=== PATIENT | male | born 1950 ===

== ENCOUNTER 2018-04-14 15:39 | Inpatient (IN) | payer BC, MEDICARE ==
[2018-04-14] VITALS (9 sets, daily range): BP systolic 96–135; BP diastolic 62–89
[~2018-04-14] VITALS: Ht 177.8 cm; Wt 83.3 kg
[2018-04-14] MEDS ORDERED: TRAM50TA2 PO (15:55)
[2018-04-14] MEDS ORDERED: MELA5TAB PO (15:55)
[2018-04-14] MEDS ORDERED: ONDA4TAB11 PO (15:55)
[2018-04-14] MEDS ORDERED: LIPA1CAP15 PO (15:55)
[2018-04-14] MEDS ORDERED: GABA-534 PO (15:55)
[2018-04-14] MEDS ORDERED: IV NORMAL SALINE 1000 ML BAG IV ONE (16:00)
[2018-04-14 16:12] LABS: BASOPHILS % (AUTO) 0.2 % (0.0-2.0)
[2018-04-14 16:14] LABS: EOSINOPHILS # (AUTO) 0.1 K/uL (0.0-0.7); EOSINOPHILS % (AUTO) 0.9 % (0.0-7.0); LYMPHOCYTES # (AUTO) 1.1 K/uL (20.0-40.0); LYMPHOCYTES % (AUTO) 7.2 % (20.5-51.5); MEAN CORPUSCULAR HEMOGLOBIN 31.6 uug (23.8-33.4); MEAN CORPUSCULAR HGB CONC 33 g/dL (32.5-36.3); MEAN CORPUSCULAR VOLUME 95.3 fL (73.0-96.2); MONOCYTES % (AUTO) 6.5 % (0.0-11.0); NEUTROPHILS # (AUTO) 13.2 K/uL (1.8-8.9); NEUTROPHILS % (AUTO) 85.2 % (38.5-71.5); PLATELET COUNT (AUTO) 95 K/uL (152-348); WHITE BLOOD COUNT (AUTO) 15.5 K/uL (3.6-10.2)
[2018-04-14 16:22] LABS: RED BLOOD CELL COUNT(AUTO) 1.86 MIL/uL (4.06-5.63)
[2018-04-14 16:23] LABS: CREATININE 0.8 mg/dL (0.6-1.3); HEMOGLOBIN 5.9 g/dL (12.5-16.3); POTASSIUM 3.3 mmol/L (3.5-5.1)
[2018-04-14 16:24] LABS: HEMATOCRIT 17.7 % (36.7-47.1)
[2018-04-14 16:28] LABS: BILIRUBIN,DIRECT 0.1 mg/dL (0.0-0.2); BILIRUBIN,TOTAL 0.2 mg/dL (0.2-1.0); TOTAL PROTEIN, SERUM 5.2 g/dL (6.4-8.2)
[2018-04-14] MEDS ORDERED: OCTREOTIDE ACETATE DRIP 1,250 MCG in IV NORMAL SALINE 250 ML IV ONE (17:00)
[2018-04-14] MEDS ORDERED: OCTREOTIDE ACETATE INJ 500 MCG in IV DEXTROSE 5% 100 ML IV ONE (17:00)
[2018-04-14 18:13] LABS: BAND % (MANUAL) 15 % (0-10); NEUTROPHILS % (MANUAL) 73 % (42-75)
[2018-04-14 18:14] LABS: LYMPHOCYTES % (MANUAL) 6 % (20-40); MONOCYTES % (MANUAL) 6 % (2-10)
[2018-04-14] MEDS ORDERED: PANTOPRAZOLE SODIUM IV 80 MG in IV DEXTROSE 5% 500 ML IV SCH (19:30)
[2018-04-14] MEDS: PANTOPRAZOLE SODIUM 40 MG VIAL IV SCH (21:05)
[2018-04-14] MEDS: HYDROMORPHONE 2 MG/1 ML DISP.SYRIN IV PRN (22:23)
[2018-04-15] VITALS (15 sets, daily range): BP systolic 102–133; BP diastolic 68–79
[2018-04-15 00:50] LABS: HEMATOCRIT 22.3 % (36.7-47.1); HEMOGLOBIN 7.7 g/dL (12.5-16.3)
[2018-04-15] MEDS: HYDROMORPHONE 2 MG/1 ML DISP.SYRIN IV PRN ×3 (05:00→22:27)
[2018-04-15] MEDS: PANTOPRAZOLE SODIUM 40 MG VIAL IV SCH ×2 (09:09→20:28)
[2018-04-15 09:25] LABS: BASOPHILS % (AUTO) 0.2 % (0.0-2.0); EOSINOPHILS # (AUTO) 0.1 K/uL (0.0-0.7); HEMATOCRIT 24.6 % (36.7-47.1); HEMOGLOBIN 8.4 g/dL (12.5-16.3); LYMPHOCYTES # (AUTO) 0.9 K/uL (20.0-40.0); LYMPHOCYTES % (AUTO) 7.9 % (20.5-51.5); MEAN CORPUSCULAR HEMOGLOBIN 31.7 uug (23.8-33.4); MEAN CORPUSCULAR HGB CONC 34 g/dL (32.5-36.3); MEAN CORPUSCULAR VOLUME 92.5 fL (73.0-96.2); MONOCYTES # (AUTO) 0.7 K/uL (2.0-10.0); MONOCYTES % (AUTO) 6.4 % (0.0-11.0); NEUTROPHILS # (AUTO) 9.5 K/uL (1.8-8.9); NEUTROPHILS % (AUTO) 84.5 % (38.5-71.5); PLATELET COUNT (AUTO) 91 K/uL (152-348); RED BLOOD CELL COUNT(AUTO) 2.66 MIL/uL (4.06-5.63); WHITE BLOOD COUNT (AUTO) 11.2 K/uL (3.6-10.2)
[2018-04-15 09:54] LABS: BAND % (MANUAL) 2 % (0-10); EOSINOPHILS % (MANUAL) 1 % (0-8); LYMPHOCYTES % (MANUAL) 6 % (20-40); MONOCYTES % (MANUAL) 9 % (2-10); NEUTROPHILS % (MANUAL) 82 % (42-75)
[2018-04-15 12:19] LABS: CREATININE 0.8 mg/dL (0.6-1.3); POTASSIUM 3.6 mmol/L (3.5-5.1)
[2018-04-15] MEDS: OCTREOTIDE ACETATE DRIP 1,250 MCG in IV NORMAL SALINE 247.5 ML IV PRN (16:38)
[2018-04-15 18:09] LABS: HEMATOCRIT 25.2 % (36.7-47.1); HEMOGLOBIN 8.5 g/dL (12.5-16.3)
[2018-04-16 05:20] VITALS: BP 110/69
[2018-04-16 06:00] LABS: HEMOGLOBIN 8.6 g/dL (12.5-16.3)
[2018-04-16] MEDS ORDERED: Z GUARD REMEDY PASTE 57 GM TUBE TOP PRN (07:45)
[2018-04-16] MEDS ORDERED: ACETAMINOPHEN 325 MG TABLET PO PRN (07:45)
[2018-04-16] MEDS ORDERED: HYDROCODONE/APAP 5-325MG TABLET PO PRN (07:45)
[2018-04-16] MEDS ORDERED: ONDANSETRON 4 MG/2 ML VIAL IV PRN (07:45)
[2018-04-16 08:39] LABS: BASOPHILS # (AUTO) 0.3 K/uL (0.0-8.0); BASOPHILS % (AUTO) 3.6 % (0.0-2.0); EOSINOPHILS # (AUTO) 0.1 K/uL (0.0-0.7); EOSINOPHILS % (AUTO) 1.5 % (0.0-7.0); HEMATOCRIT 25.5 % (36.7-47.1); HEMOGLOBIN 8.7 g/dL (12.5-16.3); LYMPHOCYTES # (AUTO) 0.8 K/uL (20.0-40.0); LYMPHOCYTES % (AUTO) 9.4 % (20.5-51.5); MEAN CORPUSCULAR HGB CONC 34 g/dL (32.5-36.3); MEAN CORPUSCULAR VOLUME 93.3 fL (73.0-96.2); MONOCYTES # (AUTO) 0.7 K/uL (2.0-10.0); NEUTROPHILS # (AUTO) 6.5 K/uL (1.8-8.9); NEUTROPHILS % (AUTO) 77.5 % (38.5-71.5); PLATELET COUNT (AUTO) 90 K/uL (152-348); RED BLOOD CELL COUNT(AUTO) 2.73 MIL/uL (4.06-5.63); WHITE BLOOD COUNT (AUTO) 8.3 K/uL (3.6-10.2)
[2018-04-16 08:49] LABS: BILIRUBIN,TOTAL 0.3 mg/dL (0.2-1.0); MAGNESIUM 1.7 mg/dL (1.8-2.4); PHOSPHOROUS 3.6 mg/dL (2.5-4.9); POTASSIUM 3.6 mmol/L (3.5-5.1)
[2018-04-16] MEDS: PANTOPRAZOLE SODIUM 40 MG VIAL IV SCH ×2 (08:55→20:08)
[2018-04-16] MEDS ORDERED: PANTOPRAZOLE SODIUM 40 MG VIAL IV SCH (09:00)
[2018-04-16 11:22] VITALS: BP 105/66
[2018-04-16] MEDS: OCTREOTIDE ACETATE DRIP 1,250 MCG in IV NORMAL SALINE 247.5 ML IV PRN (13:32)
[2018-04-16 15:00] VITALS: BP 106/68
[2018-04-16 15:37] LABS: IRON, SERUM 36 ug/dL (50-175)
[2018-04-16 15:50] LABS: FERRITIN 231 ng/mL (26-388)
[2018-04-16] MEDS ORDERED: SOD FERRIC GLUC COMPLX/SUCROSE 125 MG in IV NORMAL SALINE 100 ML IV SCH (17:30)
[2018-04-16 20:00] VITALS: BP 110/70
[2018-04-16] MEDS: HYDROMORPHONE 2 MG/1 ML DISP.SYRIN IV PRN (22:49)
[2018-04-17 05:47] VITALS: BP 117/75
[2018-04-17] MEDS ORDERED: MAGNESIUM OXIDE 400 MG TABLET PO ONE (08:45)
[2018-04-17] MEDS: PANTOPRAZOLE SODIUM 40 MG VIAL IV SCH (09:21)
[2018-04-17 09:39] LABS: BASOPHILS % (AUTO) 0.3 % (0.0-2.0); EOSINOPHILS # (AUTO) 0.2 K/uL (0.0-0.7); EOSINOPHILS % (AUTO) 1.9 % (0.0-7.0); HEMATOCRIT 27.3 % (36.7-47.1); HEMOGLOBIN 9.3 g/dL (12.5-16.3); LYMPHOCYTES # (AUTO) 0.9 K/uL (20.0-40.0); LYMPHOCYTES % (AUTO) 9.1 % (20.5-51.5); MEAN CORPUSCULAR HEMOGLOBIN 32.7 uug (23.8-33.4); MEAN CORPUSCULAR HGB CONC 34 g/dL (32.5-36.3); MEAN CORPUSCULAR VOLUME 95.7 fL (73.0-96.2); MONOCYTES # (AUTO) 0.7 K/uL (2.0-10.0); MONOCYTES % (AUTO) 7.6 % (0.0-11.0); NEUTROPHILS # (AUTO) 7.8 K/uL (1.8-8.9); NEUTROPHILS % (AUTO) 81.1 % (38.5-71.5); PLATELET COUNT (AUTO) 99 K/uL (152-348); RED BLOOD CELL COUNT(AUTO) 2.85 MIL/uL (4.06-5.63); WHITE BLOOD COUNT (AUTO) 9.6 K/uL (3.6-10.2)
== END 2018-04-17 12:30 | disposition home or self-care (01) | DRG 812 ==
LOC: ER 15:41 → CCU 18:29 → MED 04-15 19:00
PROVIDERS: ADMIT Internal Medicine; ATTEND Internal Medicine
PROC: 30233N1 Transfusion of Nonautologous Red Blood Cells into Peripheral Vein, Percutaneous Approach (ICD-10-PCS; principal; 2018-04-14)
DX: D62 Acute posthemorrhagic anemia (principal); C25.9 Malignant neoplasm of pancreas, unspecified; C78.7 Secondary malignant neoplasm of liver and intrahepatic bile duct; E44.1 Mild protein-calorie malnutrition; I86.4 Gastric varices; Z79.899 Other long term (current) drug therapy; C88.0 Waldenstrom macroglobulinemia; E87.6 Hypokalemia; Z68.26 Body mass index [BMI] 26.0-26.9, adult; D69.6 Thrombocytopenia, unspecified; G62.9 Polyneuropathy, unspecified
CPT/HCPCS: 36415; 70030-TC; 71045; 83550; 83690; 83735; 84100; 85018; 85025; 85730; 86850; 86900; 86901; 86920; 93005; A4663; C9113; G0378; J1170; J2354; J2916; J3490; J7030; J7040; J7050; P9016-BL; P9021